=== PATIENT | female | born 1965 ===

== ENCOUNTER 2017-01-11 19:10 | Observation (INO) | payer MEDICAID ==
[2017-01-11] MEDS ORDERED: Albuterol-Ipratrop 3 mg / 0.5 (3 ml) UD INH STA ×3 (20:03→20:04)
[2017-01-11] MEDS ORDERED: methylPREDNISolone 125 MG in Sodium Chloride 0.9% 50 ML IV STA (20:03)
[2017-01-11] MEDS ORDERED: Albuterol-Ipratrop 3 mg / 0.5 (3 ml) UD ONE ×2 (20:13→20:14)
--- NOTE | 2017-01-11 20:23 | ED PDOC ---
HPI: SOB/CHF/COPD Time Seen by Provider: 01/11/17 19:30 Chief Complaint (Nursing): Shortness Of Breath Chief Complaint (Provider): Shortness Of Breath History Per: Patient History/Exam Limitations: no limitations Onset/Duration Of Symptoms: Days (x3) Current Symptoms Are (Timing): Still Present Additional Complaint(s): Kamlesh Swift is a 51 year old female with previous medical history of seasonal asthma and pneumonia, who presents to the emergency department with a complaint of shortness of breath exasperated when lying down associated with wheezing, dry cough and mild nausea. Denied any fever, chills, vomiting, diarrhea or leg swelling. Patient stated she used her nebulizer and inhaler at home which had not improve her symptoms. PMD: none provided Past Medical History Reviewed: Historical Data, Nursing Documentation, Vital Signs Vital Signs: Last Vital Signs Temp 98.2 F 01/12/17 02:30 Pulse 92 H 01/12/17 02:30 Resp 20 01/12/17 02:30 BP 138/79 01/12/17 02:30 Pulse Ox 96 01/12/17 03:53 - Medical History PMH: Asthma, Cardia Arrhythmia, HTN, Pneumonia - Surgical History Surgical History: Appendectomy - Family History Family History: States: [place], Hypertension - Social History Current smoker - smoking cessation education provided: No Alcohol: None Drugs: Denies - Home Medications Home Medications: Ambulatory Orders Medication Instructions Recorded Albuterol HFA [Ventolin HFA 90 2 puff IH [id number] PRN #1 inhaler 03/29/15 mcg/actuation (8 g)] Albuterol 0.5% [Albuterol 0.5% 2.5 mg NEB Q4 PRN 05/20/16 Inhal Maria M (2.5 mg/0.5 ml) UD] Aspirin [Adult Low Dose Aspirin EC] 81 mg PO DAILY 05/20/16 Multivit-Min/FA/Lycopen/Lutein 1 tab PO DAILY 05/20/16 [Adults 50 Plus Multivitamin Tb] - Allergies Allergies/Adverse Reactions: Allergies Allergy/AdvReac Type Severity Reaction Status Date / Time Penicillins Allergy RASH Verified 05/19/16 21:46 Review of Systems ROS Statement: Except As Marked, All Systems Reviewed And Found Negative Constitutional: Negative for: Fever, Chills Respiratory: Positive for: Cough (dry), Shortness of Breath, Wheezing Gastrointestinal: Positive for: Nausea (mild). Negative for: Vomiting, Diarrhea Musculoskeletal: Negative for: Other (leg swelling) Physical Exam - Reviewed Nursing Documentation Reviewed: Yes Vital Signs Reviewed: Yes - Physical Exam Appears: Positive for: Well (but obese), Non-toxic, No Acute Distress Head Exam: Positive for: ATRAUMATIC, NORMAL INSPECTION, NORMOCEPHALIC Skin: Positive for: Pallor. Negative for: Normal Color Cardiovascular/Chest: Positive for: Regular Rate, Rhythm Respiratory: Positive for: Normal Breath Sounds, Other (decreased airway entry bilaterally). Negative for: Wheezing Neurologic/Psych: Positive for: Alert, professor of nursing II-XII, Oriented - Laboratory Results Result Diagrams: 01/11/17 21:13 01/11/17 21:13 - ECG O2 Sat by Pulse Oximetry: 96 (RA) Pulse Ox Interpretation: Normal Medical Decision Making Medical Decision Making: Initial Impression: Shortness of breath Initial Plan: * EKG * Labs * Troponin I * PTT * PT * CXR * Duoneb 3ml INH * methylpredisolone 125mg IV * Peak flow pre/post * Re-evaluation Scribe Attestation: Documented by Sara Ritchie, acting as a scribe for Tommy Olivo MD. Provider Scribe Attestation: All medical record entries made by the Scribe were at my direction and personally dictated by me. I have reviewed the chart and agree that the record accurately reflects my personal performance of the history, physical exam, medical decision making, and the department course for this patient. I have also personally directed, reviewed, and agree with the discharge instructions and disposition. Time: 011 Re-Evaluation: Labs reviewed no clinical significant abnormalities. Patient continues to have shortness of breath and chest pain. CT chest angio ordered to exclude PE. Patient admitted to telemetry for continuous cardiac monitoring and for further treatment given risk factor of morbid obesity and case referred to Dr. Levy MD. resident events solutions consultant. 0146: EXAM: CT Angiography Chest With Intravenous Contrast CLINICAL HISTORY: 51 years old, female; Pain; Chest pain; Additional info: Chest pain R/O pe TECHNIQUE: Axial computed tomographic angiography images of the chest with intravenous contrast using pulmonary embolism protocol. This CT exam was performed using one or more of the following dose reduction techniques: automated exposure control, adjustment of the mA and/or kV according to patient size, and/or use of iterative reconstruction technique. MIP reconstructed images were created and reviewed. Coronal and sagittal reformatted images were created and reviewed. CONTRAST: 100 mL of [id number] administered intravenously. COMPARISON: CT - ANGIO CHEST PE PROTOCOL 05/20/2016 1:50:31 AM FINDINGS: Pulmonary arteries: No pulmonary embolism. Moderate enlargement of the main pulmonary artery, suggesting pulmonary hypertension Aorta: No thoracic aortic aneurysm. Lungs: No mass. No consolidation. Pleural spaces: No significant effusion. No pneumothorax. Heart: The heart is enlarged, without pericardial effusion. No evidence of right heart dysfunction. Bones: No acute fracture. Lymph nodes: No pathologically enlarged lymph nodes. IMPRESSION: No pulmonary embolism. Findings suggesting pulmonary hypertension, as detailed above. Lungs are clear. Scribe Attestation: Documented by Becki Reed, acting as a scribe for Tommy Olivo MD. Scribe Attestation: All medical record entries made by the Scribe were at my direction and personally dictated by me. I have reviewed the chart and agree that the record accurately reflects my personal performance of the history, physical exam, medical decision making, and the department course for this patient. I have also personally directed, reviewed, and agree with the discharge instructions and disposition. Disposition - Clinical Impression Clinical Impression: Chest pain - Patient ED Disposition Is Patient to be Admitted: Yes - Disposition Disposition Time: 21:30 Condition: FAIR - Pt Status Changed To: Hospital Disposition Of: Observation
[2017-01-11 21:22] LABS: BASO # 0.1 K/uL (0.0-0.2); BASO % 0.7 % (0.0-2.0); EOS # 0.2 K/uL (0.0-0.7); EOS % 2.4 % (0.0-4.0); HEMOGLOBIN 13.1 g/dL (12.0-16.0); LYMPH # 2.4 K/uL (1.0-4.3); LYMPH % 30.1 % (20.0-40.0); MEAN CELL VOLUME 88.8 fl (81.0-99.0); MEAN CORPUSCULAR HEMOGLOBIN 29.7 pg (27.0-31.0); MEAN CORPUSCULAR HGB CONC 33.5 g/dL (33.0-37.0); MEAN PLATELET VOLUME 8.1 fl (7.2-11.7); MONO # 0.8 K/uL (0.0-0.8); MONO % 9.9 % (0.0-10.0); NEUT # 4.5 K/uL (1.8-7.0); NEUT % 56.9 % (50.0-75.0); RBC 4.39 Mil/uL (3.80-5.20); RED CELL DISTRIBUTION WIDTH 14.2 % (11.5-14.5)
[2017-01-11 21:30] LABS: ALB/GLOB RATIO 1.2 (1.0-2.1); ALBUMIN 4.1 g/dL (3.5-5.0); ALT/SGPT 53 U/L (9-52); AST/SGOT 45 U/L (14-36); BLOOD UREA NITROGEN 14 mg/dl (7-17); CALCIUM 9.4 mg/dL (8.4-10.2); GFR AFRICAN-AMERICAN > 60; GFR NON-AFRICAN AMERICAN > 60
[2017-01-11 21:33] LABS: INR 1.2 (0.9-1.2); PARTIAL THROMBOPLASTIN TIME 34.7 Seconds (25.6-37.1); PROTHROMBIN TIME 12.2 Seconds (9.8-13.1)
[2017-01-11] MEDS ORDERED: Promethazine/Cod 6.25mg-10mg/5ml Syr UD PO STA (22:29)
[2017-01-11] MEDS ORDERED: Promethazine/Cod 6.25mg-10mg/5ml Syr UD ONE (22:40)
[2017-01-11] MEDS ORDERED: Morphine 4 MG/ML VIAL IVP ONE (23:44)
[2017-01-12] MEDS ORDERED: Morphine 4 MG/ML VIAL ONE
[2017-01-12] MEDS ORDERED: Sodium Chloride 0.9% 50 ML IV ONE (00:02)
[2017-01-12] MEDS ORDERED: Iodixanol 320 MG/ML 100 ML BOTTLE IV ONE (00:02)
[2017-01-12] MEDS ORDERED: Albuterol-Ipratrop 3 mg / 0.5 (3 ml) UD INH PRN (00:24)
--- NOTE | 2017-01-12 00:29 | CP.PCM.HP ---
History of Present Illness - History of Present Illness History of Present Illness: 51 y/o F with PMH including intermittent asthma and morbid obesity presents to ED with 3 day history of chest pain. Patient reports pain has been located in sternal region, "sharp" in quality, 8/10 intensity, constant and aggravated by deep inspiration. She reports associated persistent dry cough but denies wheezing or noticeable respiratory distress. Patient was with friends who were smoking hookah shortly before symptoms started. She has tried using her albuterol HFA and albuterol nebulizer with no improvement. Patient denies headache, dizziness, diaphoresis, abdominal pain, nausea, vomiting or diarrhea. Patient states that at baseline she is able to walk 10 blocks or go up at least 2 flights of stairs without exertional chest pain. PMD: Dr Tai/Dr Strauss, [facility] Present on Admission - Present on Admission Any Indicators Present on Admission: No History of DVT/PE: No History of Uncontrolled Diabetes: No Urinary Catheter: No Decubitus Ulcer Present: No Review of Systems - Review of Systems All systems: reviewed and no additional remarkable complaints except Past Patient History - Infectious Disease Hx of Infectious Diseases: None - Past Medical History & Family History Past Medical History?: Yes - Past Social History Smoking Status: Never Smoked Alcohol: Social Drugs: Denies Home Situation {Lives}: With Family - CARDIAC Hx Hypertension: No - PULMONARY Hx Asthma: Yes Hx Pneumonia: Yes - NEUROLOGICAL Hx Neurological Disorder: No - HEENT Hx HEENT Problems: No - ENDOCRINE/METABOLIC Hx Endocrine Disorders: Yes (Morbid obesity) - HEMATOLOGICAL/ONCOLOGICAL Hx Blood Disorders: No - INTEGUMENTARY Hx Dermatological Problems: No - MUSCULOSKELETAL/RHEUMATOLOGICAL Hx Musculoskeletal Disorders: No Hx Falls: No - GASTROINTESTINAL Hx Gastrointestinal Disorders: No - GENITOURINARY/GYNECOLOGICAL Hx Genitourinary Disorders: No - PSYCHIATRIC Hx Substance Use: No - SURGICAL HISTORY Hx Appendectomy: Yes - ANESTHESIA Hx Anesthesia: Yes Hx Anesthesia Reactions: No Hx Malignant Hyperthermia: No Meds Allergies/Adverse Reactions: Allergies Allergy/AdvReac Type Severity Reaction Status Date / Time Penicillins Allergy RASH Verified 05/19/16 21:46 Physical Exam - Constitutional Appears: Non-toxic, No Acute Distress - Head Exam Head Exam: ATRAUMATIC, NORMAL INSPECTION, NORMOCEPHALIC - Eye Exam Eye Exam: EOMI, PERRL - ENT Exam ENT Exam: Mucous Membranes Moist - Respiratory Exam Respiratory Exam: Chest Wall Tenderness (Sternal tenderness) Additional comments: Good b/l air entry present with no wheezes, rales or rhonchii audible. Speaking in full sentences with no signs of respiratory distress. - Cardiovascular Exam Cardiovascular Exam: REGULAR RHYTHM, RRR, +S1, +S2 - GI/Abdominal Exam GI & Abdominal Exam: Normal Bowel Sounds, Soft. absent: Guarding, Rigid, Tenderness - Extremities Exam Extremities exam: Positive for: normal capillary refill. Negative for: calf tenderness, pedal edema - Neurological Exam Neurological exam: Alert, CN II-XII Intact, Oriented x3 - Psychiatric Exam Psychiatric exam: Normal Affect, Normal Mood - Skin Skin Exam: Dry, Warm Results - Vital Signs Recent Vital Signs: Last Vital Signs Temp 98.8 F 01/11/17 19:14 Pulse 73 01/11/17 19:14 Resp 18 01/11/17 20:53 BP 132/74 01/11/17 19:14 Pulse Ox 94 L 01/11/17 20:53 - Labs Result Diagrams: 01/11/17 21:13 01/11/17 21:13 Assessment & Plan - Assessment and Plan (Free Text) Assessment: 51 y/o F with PMH including intermittent asthma and morbid obesity presents to ED with 3 day history of chest pain. Plan: Chest pain -Etiology undetermined. Rule out ACS. -Troponin x1 negative. Will follow x3 -EKG reveals NSR with nonspecific st changes that have no appreciable change from prior study in 05/2016 -Cardiac echo performed on 05/20/16 detected normal LV thickness, LVEF of 60-65 % and normal diastolic function -CT angio chest ordered in ED, results pending -ASA administered -Pain improved slightly with toradol 10mg IV in ED -Admit to telemetry for continuous cardiac monitoring -O2 via NC prn -Motrin 600mg Q8h to treat possible costochondritis secondary to recent persistent cough Intermittent asthma -Seasonal asthma, usually triggered by winter/cold -Possible acute exacerbation secondary to exposure to hookah smoke -Peak flow in ED 250 after duoneb x3 -Methylprednisolone 125mg IV adminstered -Duoneb Q4h PRN -Continu with Prednisone 60mg PO daily Morbid obesity -BMI 47.1 -Patient in early stages of exploring bariatric surgery -HgbA1c from 12/31/16: 5.7% -Lipid panel from 12/31/16: Total chol: 190, LDL: 115, HDL: 48 -TSH from 12/31/16: 2.51 DVT Prophylaxis -Lovenox 40mg SC daily
--- NOTE | 2017-01-12 01:47 | CT ---
EXAM: CT Angiography Chest With Intravenous Contrast CLINICAL HISTORY: 51 years old, female; Pain; Chest pain; Additional info: Chest pain R/O pe TECHNIQUE: Axial computed tomographic angiography images of the chest with intravenous contrast using pulmonary embolism protocol. This CT exam was performed using one or more of the following dose reduction techniques: automated exposure control, adjustment of the mA and/or kV according to patient size, and/or use of iterative reconstruction technique. MIP reconstructed images were created and reviewed. Coronal and sagittal reformatted images were created and reviewed. CONTRAST: 100 mL of [id number] administered intravenously. COMPARISON: CT - ANGIO CHEST PE PROTOCOL 05/20/2016 1:50:31 AM FINDINGS: Pulmonary arteries: No pulmonary embolism. Moderate enlargement of the main pulmonary artery, suggesting pulmonary hypertension Aorta: No thoracic aortic aneurysm. Lungs: No mass. No consolidation. Pleural spaces: No significant effusion. No pneumothorax. Heart: The heart is enlarged, without pericardial effusion. No evidence of right heart dysfunction. Bones: No acute fracture. Lymph nodes: No pathologically enlarged lymph nodes. IMPRESSION: No pulmonary embolism. Findings suggesting pulmonary hypertension, as detailed above. Lungs are clear.
--- NOTE | 2017-01-12 07:49 | CARD ---
APPROVED REPORT EKG Measurement Heart [id number] NH 128P41 [id number] <Conclusion> Normal sinus rhythm Nonspecific ST and T wave abnormality Abnormal ECG
[2017-01-12 08:30] VITALS: RESP 18
[2017-01-12] MEDS ORDERED: Alum-Mag Hydrox-Simethicone Susp (30 mL) PO ONE (08:40)
[2017-01-12] MEDS ORDERED: Enoxaparin 40 mg Syringe SC SCH (09:00)
--- NOTE | 2017-01-12 09:38 | CARD ---
APPROVED REPORT EKG Measurement Heart [id number] MA 130P34 [id number] <Conclusion> Sinus bradycardia Otherwise normal ECG
--- NOTE | 2017-01-12 12:11 | RAD ---
HISTORY: Shortness of breath. COMPARISON: 05/19/2016 TECHNIQUE: Chest PA and lateral FINDINGS: LUNGS: No active pulmonary disease. PLEURA: No significant pleural effusion identified. No pneumothorax apparent. CARDIOVASCULAR: No radiographic findings to suggest acute or significant cardiovascular disease. OSSEOUS STRUCTURES: No abnormalities identified VISUALIZED UPPER ABDOMEN: Normal. OTHER FINDINGS: None. IMPRESSION: No active disease. No significant interval change compared to the prior examination(s).
[2017-01-12 12:34] VITALS: BP 145/78; PULSE 50; TEMP 97.6; O2SAT 95
--- NOTE | 2017-01-12 14:15 | CP.PCM.DIS ---
Provider - Provider Date of Admission: 01/11/17 23:12 Attending physician: Heide Kathleen MD Time Spent in preparation of Discharge (in minutes): 35 Diagnosis - Discharge Diagnosis (1) Chest pain Status: Resolved Comment: likely secondary to anxiety vs costochondritis Hospital Course - Lab Results Lab Results: Most Recent Lab Values WBC 8.0 K/uL (4.8-10.8) 01/11/17 21:13 RBC 4.39 Mil/uL (3.80-5.20) 01/11/17 21:13 Hgb 13.1 g/dL (12.0-16.0) 01/11/17 21:13 Hct 39.0 % (34.0-47.0) 01/11/17 21:13 MCV 88.8 fl (81.0-99.0) 01/11/17 21:13 MCH 29.7 pg (27.0-31.0) 01/11/17 21:13 MCHC 33.5 g/dL (33.0-37.0) 01/11/17 21:13 RDW 14.2 % (11.5-14.5) 01/11/17 21:13 Plt Count 240 K/uL (130-400) 01/11/17 21:13 MPV 8.1 fl (7.2-11.7) 01/11/17 21:13 Neut % (Auto) 56.9 % (50.0-75.0) 01/11/17 21:13 Lymph % (Auto) 30.1 % (20.0-40.0) 01/11/17 21:13 Isabella % (Auto) 9.9 % (0.0-10.0) 01/11/17 21:13 Eos % (Auto) 2.4 % (0.0-4.0) 01/11/17 21:13 Baso % (Auto) 0.7 % (0.0-2.0) 01/11/17 21:13 Neut # 4.5 K/uL (1.8-7.0) 01/11/17 21:13 Lymph # 2.4 K/uL (1.0-4.3) 01/11/17 21:13 Isabella # 0.8 K/uL (0.0-0.8) 01/11/17 21:13 Eos # 0.2 K/uL (0.0-0.7) 01/11/17 21:13 Baso # 0.1 K/uL (0.0-0.2) 01/11/17 21:13 PT 12.2 Seconds (9.8-13.1) 01/11/17 21:13 INR 1.2 (0.9-1.2) 01/11/17 21:13 APTT 34.7 Seconds (25.6-37.1) 01/11/17 21:13 Sodium 138 mmol/l (132-148) 01/11/17 21:13 Potassium 4.1 MMOL/L (3.6-5.0) 01/11/17 21:13 Chloride 103 mmol/L (98-107) 01/11/17 21:13 Carbon Dioxide 28 mmol/L (22-30) 01/11/17 21:13 Anion Gap 11 (10-20) 01/11/17 21:13 BUN 14 mg/dl (7-17) 01/11/17 21:13 Creatinine 0.8 mg/dL (0.7-1.2) 01/11/17 21:13 Est GFR ( Amer) > 60 01/11/17 21:13 Est GFR (Non-Af Amer) > 60 01/11/17 21:13 Random Glucose 99 mg/dL (65-105) 01/11/17 21:13 Calcium 9.4 mg/dL (8.4-10.2) 01/11/17 21:13 Total Bilirubin 0.6 mg/dl (0.2-1.3) 01/11/17 21:13 AST 45 U/L (14-36) H D 01/11/17 21:13 ALT 53 U/L (9-52) H 01/11/17 21:13 Alkaline Phosphatase 91 U/L (38-126) 01/11/17 21:13 Troponin I < 0.0120 ng/mL (0.00-0.120) 01/12/17 04:50 Total Protein 7.6 G/DL (6.3-8.2) 01/11/17 21:13 Albumin 4.1 g/dL (3.5-5.0) 01/11/17 21:13 Globulin 3.5 gm/dL (2.2-3.9) 01/11/17 21:13 Albumin/Globulin Ratio 1.2 (1.0-2.1) 01/11/17 21:13 - Hospital Course Hospital Course: 51 year old female with PMH of intermittent asthma and morbid obesity presented with chest pain for 3 days prior to admission and was admitted for same. ACS ruled out. She was not in acute asthma exacerbation. At length discussion with patient, endorsed high stress/anxiety, thinks she is depressed. She has an appointment with Mildred this tuesday at [facility] on 01/14/2017. She declined any antidepressants at this time. Feels jittery when using albuterol. Chest pain is reproducible on todays exam. Denies any dizziness, SOB, abdominal pain , n/v or pedal edema. Consider starting xopenex outpatient. No medications given at discharge. Shoud be sent for sleep study as outpatient as well. Discharge Exam - Head Exam Head Exam: ATRAUMATIC, NORMAL INSPECTION, NORMOCEPHALIC - Eye Exam Eye Exam: EOMI, Normal appearance, PERRL - ENT Exam ENT Exam: Mucous Membranes Moist - Respiratory Exam Respiratory Exam: Clear to PA & Lateral, NORMAL BREATHING PATTERN - Cardiovascular Exam Cardiovascular Exam: REGULAR RHYTHM, +S1, +S2 - GI/Abdominal Exam GI & Abdominal Exam: Unremarkable - Neurological Exam Neurological exam: Alert, CN II-XII Intact - Psychiatric Exam Additional comments: appropriate affect and mood. - Skin Skin Exam: Dry, Intact, Normal Color Discharge Plan - Follow Up Plan Condition: FAIR Disposition: HOME/ ROUTINE Instructions: Chest Pain (DC), Depression (DC) Additional Instructions: Appointment with Dr. Jewell January 28 at 2p[address]. [address] [address]
== END 2017-01-12 13:37 | disposition home or self-care (01) ==
LOC: H.ER 19:10 → H.ERHOLD 23:12 → H.TEL 01-12 01:50
PROVIDERS: ADMIT Family Medicine Geriatric Medicine; ATTEND Family Medicine Geriatric Medicine
DX: F41.9 Anxiety disorder, unspecified (principal); E66.01 Morbid (severe) obesity due to excess calories; J44.9 Chronic obstructive pulmonary disease, unspecified; J45.20 Mild intermittent asthma, uncomplicated; Z79.82 Long term (current) use of aspirin; Z87.01 Personal history of pneumonia (recurrent); I10 Essential (primary) hypertension; F41.8 Other specified anxiety disorders; M94.0 Chondrocostal junction syndrome [Tietze]

== ENCOUNTER 2017-07-09 20:29 | Emergency (ER) | payer MEDICAID ==
[2017-07-09 21:21] VITALS: BMI 44.9
[2017-07-09 21:22] VITALS: BP 119/75; PULSE 100; RESP 16; TEMP 99; O2SAT 98
--- NOTE | 2017-07-09 21:40 | ED PDOC ---
HPI: General Adult Time Seen by Provider: 07/09/17 21:30 Chief Complaint (Nursing): Flu-like Symptoms Chief Complaint (Provider): Flu-like Symptoms History Per: Patient History/Exam Limitations: no limitations Onset/Duration Of Symptoms: Days Current Symptoms Are (Timing): Still Present Additional Complaint(s): 52 year old female presents to the emergency department with a complaint of a cough, body aches, and fever since night, 07/07/2017. States she has been taking Tylenol and DayQuil for the relief of symptoms. Randy shortness of breath, chest pain, blood in cough, nausea, vomiting, diarrhea, sick contacts, or any recent travel. Past Medical History Reviewed: Historical Data, Nursing Documentation, Vital Signs Vital Signs: Last Vital Signs Temp 99.0 F 07/09/17 21:21 Pulse 100 H 07/09/17 21:21 Resp 16 07/09/17 21:21 BP 119/75 07/09/17 21:21 Pulse Ox 98 07/09/17 21:52 - Medical History PMH: Asthma, Cardia Arrhythmia, HTN, Pneumonia - Surgical History Surgical History: Appendectomy - Family History Family History: States: [place], Hypertension - Social History Current smoker - smoking cessation education provided: No Alcohol: None Drugs: Denies - Home Medications Home Medications: Ambulatory Orders Medication Instructions Recorded Albuterol HFA [Ventolin HFA 90 2 puff IH [id number] PRN #1 inhaler 03/29/15 mcg/actuation (8 g)] Albuterol 0.5% [Albuterol 0.5% 2.5 mg NEB Q4 PRN 05/20/16 Inhal Maria M (2.5 mg/0.5 ml) UD] Aspirin [Adult Low Dose Aspirin EC] 81 mg PO DAILY 05/20/16 Multivit-Min/FA/Lycopen/Lutein 1 tab PO DAILY 05/20/16 [Adults 50 Plus Multivitamin Tb] Oseltamivir Phosphate [Tamiflu] 75 mg PO BID #9 capsule 07/09/17 - Allergies Allergies/Adverse Reactions: Allergies Allergy/AdvReac Type Severity Reaction Status Date / Time Penicillins Allergy RASH Verified 07/09/17 21:22 Review of Systems ROS Statement: Except As Marked, All Systems Reviewed And Found Negative (As per HPI, otherwise negative) Constitutional: Positive for: Fever (Body aches). Negative for: Other (Sick contacts or any recent travel) Cardiovascular: Negative for: Chest Pain Respiratory: Positive for: Cough. Negative for: Shortness of Breath, Hemoptysis Gastrointestinal: Negative for: Nausea, Vomiting, Diarrhea Physical Exam - Reviewed Nursing Documentation Reviewed: Yes Vital Signs Reviewed: Yes - Physical Exam Appears: Positive for: No Acute Distress Head Exam: Positive for: ATRAUMATIC, NORMAL INSPECTION, NORMOCEPHALIC Skin: Positive for: Normal Color, Warm, Dry Eye Exam: Positive for: Normal appearance, EOMI, PERRL ENT: Positive for: Normal ENT Inspection Cardiovascular/Chest: Positive for: Regular Rate, Rhythm. Negative for: Murmur Respiratory: Positive for: Normal Breath Sounds. Negative for: Accessory Muscle Use, Respiratory Distress Gastrointestinal/Abdominal: Positive for: Normal Exam, Soft. Negative for: Tenderness Neurologic/Psych: Positive for: Alert, Oriented (x3) - ECG O2 Sat by Pulse Oximetry: 98 (RA) Pulse Ox Interpretation: Normal - Radiology X-Ray: Interpreted by Me (CXR) Medical Decision Making Medical Decision Making: Time: 2137 Initial impression: Flu-like symptoms Initial plan: --Chest x-ray --Tamiflu 75 mg PO --Reevaluation Time: 2150 --Patient is medically stable for discharge and will be given Rx for Tamiflu 75 mg. Advised to follow up with PMD. Clinical Impression: Influenza Like symptoms Scribe Attestation: Documented by Shanika Doshi, acting as a scribe for King Candelaria PA-C Provider Scribe Attestation: All medical record entries made by the Scribe were at my direction and personally dictated by me. I have reviewed the chart and agree that the record accurately reflects my personal performance of the history, physical exam, medical decision making, and the department course for this patient. I have also personally directed, reviewed, and agree with the discharge instructions and disposition. Disposition - Clinical Impression Clinical Impression: Influenza-like symptoms - Patient ED Disposition Is Patient to be Admitted: No - Disposition Referrals: Piotr Fung [Outside] Disposition: Routine/Home Disposition Time: 21:51 Condition: STABLE Prescriptions: Oseltamivir Phosphate [Tamiflu] 75 mg PO BID #9 capsule Instructions: Influenza (ED) Forms: [employer] ([place]), [facility] ED School/Work Excuse
--- NOTE | 2017-07-10 09:02 | RAD ---
HISTORY: cough COMPARISON: Chest radiograph dated 01/11/2017. TECHNIQUE: Chest PA and lateral FINDINGS: LUNGS: No active pulmonary disease. PLEURA: No significant pleural effusion identified. No pneumothorax apparent. CARDIOVASCULAR: Normal. OSSEOUS STRUCTURES: No significant abnormalities. VISUALIZED UPPER ABDOMEN: Normal. OTHER FINDINGS: None. IMPRESSION: No active disease.
== END 2017-07-09 22:02 | disposition home or self-care (01) ==
LOC: H.ER 20:29
DX: J45.909 Unspecified asthma, uncomplicated (principal); I10 Essential (primary) hypertension; Z79.82 Long term (current) use of aspirin; Z88.0 Allergy status to penicillin

== ENCOUNTER 2018-06-05 01:53 | Emergency (ER) | payer MEDICAID ==
[2018-06-05 01:54] VITALS: BMI 44.9
[2018-06-05 02:07] VITALS: BP 143/5; PULSE 71; RESP 16; TEMP 97.6; O2SAT 100
--- NOTE | 2018-06-05 02:43 | ED PDOC ---
Upper Extremity Pain/Injury Time Seen by Provider: 06/05/18 02:15 Chief Complaint (Nursing): Finger,Hand,&Wrist Chief Complaint (Provider): Finger,Hand,&Wrist History Per: Patient History/Exam Limitations: no limitations Onset/Duration Of Symptoms: Hrs (x 4) Current Symptoms Are (Timing): Still Present Quality: "Pain" Additional Complaint(s): 53 year old right hand dominant female presents to the ED with atraumatic left wrist pain for the last four hours. Patient reports she woke up with the pain and describes it as sharp and shooting to the outside of the wrist. She ranked pain as 10/10. Patient did not take medications prior to arrival because she is unable to take pills due to gastric bypass. 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 Denies loss of sensation and fever. PMD: Dr. Jose Angel Pruett Past Medical History Reviewed: Historical Data, Nursing Documentation, Vital Signs Vital Signs: Last Vital Signs Temp 97.6 F 06/05/18 02:02 Pulse 71 06/05/18 02:02 Resp 16 06/05/18 02:02 BP 143/5 L 06/05/18 02:02 Pulse Ox 100 06/05/18 02:02 - Medical History PMH: Asthma, Cardia Arrhythmia, HTN, Pneumonia - Surgical History Surgical History: Appendectomy, Other surgeries: lysis of adhesions, gastric bypass - Family History Family History: States: [place], Hypertension, Other - Home Medications Home Medications: Ambulatory Orders Medication Instructions Recorded RX: Albuterol HFA [Ventolin HFA 90 2 puff IH [id number] PRN #1 inhaler 03/29/15 mcg/actuation (8 g)] RX: Albuterol 0.5% [Albuterol 0.5% 2.5 mg NEB Q4 PRN 05/20/16 Inhal Maria M (2.5 mg/0.5 ml) UD] RX: Aspirin [Adult Low Dose 81 mg PO DAILY 05/20/16 Aspirin EC] RX: Multivit-Min/FA/Lycopen/Lutein 1 tab PO DAILY 05/20/16 [Adults 50 Plus Multivitamin Tb] Oseltamivir Phosphate [Tamiflu] 75 mg PO BID #9 capsule 07/09/17 RX: Acetaminophen 20.3 ml PO Q8 PRN #600 ml 06/05/18 - Allergies Allergies/Adverse Reactions: Allergies Allergy/AdvReac Type Severity Reaction Status Date / Time Penicillins Allergy RASH Verified 07/09/17 21:22 Review of Systems ROS Statement: Except As Marked, All Systems Reviewed And Found Negative Musculoskeletal: Positive for: Hand Pain (left wrist pain) Physical Exam - Reviewed Nursing Documentation Reviewed: Yes Vital Signs Reviewed: Yes - Physical Exam Comments: GENERAL APPEARANCE: Patient is awake, alert, oriented x 3, mild painful distress. SKIN: Warm, dry; (-) cyanosis. NECK: Supple, FROM ENT: Mucus membranes moist. Airway patent, (-) stridor. CHEST AND RESPIRATORY: (-) rales, (-) rhonchi, (-) wheezes; breath sounds equal bilaterally. Respirations even and nonlabored. HEART AND CARDIOVASCULAR: (-) irregularity WRIST: (+) Diffuse tenderness to ventral and dorsal wrist most notably to ulnar aspect of wrist, (-) swelling, (-) ecchymosis, (-) effusion, (-) skin break, (- ) warmth (-) deformity. (-) distal neurovascular deficit. Elbow, hand and digits: (-) tenderness. Capillary refill < 2 seconds. Distal pulses 2+. Sensation intact throughout. NEURO AND PSYCH: Mental status as above. Gait: steady. Speech: clear. (-) facial asymmetry - ECG O2 Sat by Pulse Oximetry: 100 (RA) Pulse Ox Interpretation: Normal Medical Decision Making Medical Decision Makin:30 Impression: acute wrist pain Initial Plan: --Toradol 30 mg IM --Left wrist x-ray 3 views --Re-evaluation 0320 Wrist XR: (-) acute fracture (-) bony pathology as read by Mehran CONRAD Patient notified official radiology read is still pending and that she would be notified of any discrepancies via phone. Patient placed in pre-made velcro wrist splint by certified scrub tech. NV intact after placement. On re-evaluation, patient reports improvement of symptoms. On exam, patient remains AAOx3, in no acute distress. Vitals stable. Lab/Diagnostic results d/w the patient in great detail. Diagnosis of acute wrist pain, probable tendonitis d/w the patient. Based on history, exam and diagnostic results, plan will be for outpatient follow up with ortho/PMD. Patient instructed to follow-up with pmd / referral provided / the clinic in 1- 2 days without fail. Advised to take medication as prescribed. Return to the emergency room at any time for any new or worsening symptoms. Patient states she fully agrees with and understands discharge instructions. States that she agrees with the plan and disposition. Verbalized and repeated discharge instructions and plan. I have given the patient opportunity to ask any additional questions. -- Scribe Attestation: Documented by Shari Knutson acting as a scribe for Jayne Laurent PA-C Provider Scribe Attestation: All medical record entries made by the Scribe were at my direction and personally dictated by me. I have reviewed the chart and agree that the record accurately reflects my personal performance of the history, physical exam, medical decision making, and the department course for this patient. I have also personally directed, reviewed, and agree with the discharge instructions and disposition. Disposition - Clinical Impression Clinical Impression: Wrist pain, left, Tendonitis of wrist, left - Patient ED Disposition Is Patient to be Admitted: No Counseled Patient/Family Regarding: Studies Performed, Diagnosis, Need For Followup, Rx Given - Disposition Referrals: Oleg Bullock MD [Medical Doctor] - jose angel pruett [Other] Disposition: Routine/Home Disposition Time: 03:40 Condition: STABLE Additional Instructions: The emergency medical care you received today was directed at your acute symptoms. If you were prescribed any medication, please fill it and take as directed. It may take several days for your symptoms to resolve. Return to the Emergency Department if your symptoms worsen, do not improve, or if you have any other problems. Please contact your doctor in 2 days for re-evaluation and follow up / or call one of the physicians/clinics you have been referred to that are listed on the Patient Visit Information form that is included in your discharge packet. Bring any paperwork you were given at discharge with you along with any medications you are taking to your follow up visit. Our treatment cannot replace ongoing medical care by a primary care provider (PCP) outside of the emergency department. Prescriptions: RX: Acetaminophen 20.3 ml PO Q8 PRN #600 ml PRN Reason: Pain, Moderate (4-7) Instructions: Tendonitis, Wrist Sprain (DC), Muscle and Bone Pain (DC), Common Wrist Injuries (DC) Forms: [email or web address] [facility] ([place]ien), [facility] ED School/Work Excuse Print Language: SAMI - POA Present On Arrival: None
--- NOTE | 2018-06-05 11:56 | RAD ---
Date of service: 06/05/2018 PROCEDURE: Left Wrist Radiographs. HISTORY: joint pain COMPARISON: None. FINDINGS: BONES: Normal. No fracture. JOINTS: Normal. No dislocation. SOFT TISSUES: Normal. OTHER FINDINGS: None. IMPRESSION: Normal left wrist radiographs.
== END 2018-06-05 04:11 | disposition home or self-care (01) ==
LOC: H.ER 01:53
DX: M25.532 Pain in left wrist (principal); M77.9 Enthesopathy, unspecified; I10 Essential (primary) hypertension; J45.909 Unspecified asthma, uncomplicated; Z98.84 Bariatric surgery status; Z88.0 Allergy status to penicillin; Z79.82 Long term (current) use of aspirin
CPT/HCPCS: 73110; 96372; 99283; J1885